=== PATIENT | male | born 1935 | race Caucasian/White ===

== ENCOUNTER 2017-08-06 16:41 | Inpatient (IN) | payer MEDICARE ==
[~2017-08-06] VITALS: Ht 167.6 cm; Wt 62.2 kg
[2017-08-06] MEDS ORDERED: VANCOMYCIN PER PHARMACY MC ONE (17:00)
[2017-08-06] MEDS ORDERED: PIPERACILLIN/TAZO/PMX 3.375GM 50 ML IVPB ONE (17:00)
[2017-08-06] MEDS ORDERED: SODIUM CHLORIDE 0.9% 1,000ML IVBOLUS ONE ×2 (17:00→18:00)
[2017-08-06] MEDS ORDERED: PIPERACILLIN/TAZO/PMX 3.375GM 50 ML ONE ×2 (17:22→17:24)
[2017-08-06 17:27] LABS: MEAN CORPUSCULAR HEMOGLOBIN 33.3 pg (27.5-34.5); MEAN CORPUSCULAR HGB CONC 32.2 g/dL (33.2-36.2); MEAN CORPUSCULAR VOLUME 103.4 fL (81-97); MEAN PLATELET VOLUME 8.7 fL (7.4-10.4); PLATELET COUNT 537 x10^3/uL (130-400); RED BLOOD COUNT 3.62 x10^6/uL (4.38-5.82); RED CELL DISTRIBUTION WIDTH 16.7 % (9.4-14.8)
[2017-08-06 17:28] LABS: MD YES
[2017-08-06] MEDS ORDERED: PLEASE ENTER ALLERGIES MC SCH (17:30)
[2017-08-06] MEDS ORDERED: PLEASE ENTER HEIGHT AND WEIGHT MC SCH (17:30)
[2017-08-06] MEDS ORDERED: VANCOMYCIN 1,400 MG in SODIUM CHLORIDE 0.9% 250 ML IV ONE (17:30)
[2017-08-06 17:35] LABS: INTERNATIONAL NORMALIZED RATIO 1.23 (0.93-1.1); PROTHROMBIN TIME 12.7 Seconds (9.6-11.5)
[2017-08-06 17:38] LABS: ALANINE AMINOTRANSFERASE 17 U/L (12-78); ALBUMIN 1.7 g/dL (3.4-5.0); ANION GAP 30 mmol/L (5-15); CALCIUM 8.1 mg/dL (8.5-10.1); CHLORIDE 108 mmol/L (98-107); CREATININE 1.43 mg/dL (0.7-1.3); PH, VENOUS 6.969 pH (7.320-7.420)
[2017-08-06 17:40] LABS: ALKALINE PHOSPHATASE 136 U/L (45-117); BILIRUBIN,TOTAL 0.7 mg/dL (0.2-1.0); TOTAL PROTEIN 5.8 g/dL (6.4-8.2)
[2017-08-06 17:45] LABS: ACETONE, SERUM Large (80mg/dL) mg/dL (Negative)
[2017-08-06] MEDS ORDERED: INSULIN REGULAR 100 UNITS/ML, 3ML VIAL SQ-INSULIN ONE (18:00)
[2017-08-06 18:18] LABS: BAND#(MANUAL) 4.85 x10^3/uL; BANDS%(MANUAL) 11 % (0-7); EOS#(MANUAL) 0.44 x10^3/uL (0.0-0.4); EOS% (MANUAL) 1 % (1-7); LYMPH#(MANUAL) 1.32 x10^3/uL (1-3.4); LYMPHS% (MANUAL) 3 % (22-44); METAMYELOCYTES# (MANUAL) 2.21 x10^3/uL (0-0); METAMYELOCYTES% (MANUAL) 5 % (0-1); MONOS#(MANUAL) 0.88 x10^3/uL (0.3-2.7); MONOS% (MANUAL) 2 % (2-9); MYELOCYTES# (MANUAL) 3.97 x10^3/uL (0-0); MYELOCYTES% (MANUAL) 9 % (0-0); NRBC % (MANUAL) 2 % (0-1); SEG#(MANUAL) 30.43 x10^3/uL (1.8-6.8); SEGS% (MANUAL) 69 % (42-75)
[2017-08-06 18:19] LABS: ANISOCYTOSIS 1+; HYPOCHROMIA 1+
[2017-08-06 18:20] LABS: <PLATELET ESTIMATE> INCREASED; LARGE PLATELETS 1+
[2017-08-06 18:21] LABS: HYPERSEG PMNs 1+
[2017-08-06] MEDS ORDERED: FENTANYL PF 100 MCG/2ML ONE (18:34)
[2017-08-06] MEDS ORDERED: MIDAZOLAM 1 MG/ML, 2ML ONE (18:34)
[2017-08-06] MEDS ORDERED: SODIUM BICARBONATE 1 MEQ/ML, 50ML VIAL ONE (19:10)
[2017-08-06] MEDS ORDERED: NOREPINEPHRINE 1 MG/ML, 4ML ONE ×2 (19:15→19:17)
[2017-08-06] MEDS ORDERED: REGULAR INSULIN 62.5 UNITS in SODIUM CHLORIDE 0.9% 249.375 ML IV PRN (19:41)
[2017-08-06] MEDS ORDERED: D5%-0.45% NACL 1,000 ML IV PRN (19:41)
[2017-08-06] MEDS ORDERED: ACETAMINOPHEN 325 MG TABLET PO PRN (20:00)
[2017-08-06] MEDS ORDERED: ONDANSETRON ODT 4 MG PO PRN (20:00)
[2017-08-06] MEDS ORDERED: VANCOMYCIN PER PHARMACY MC PRN (20:00)
[2017-08-06] MEDS ORDERED: hydrALAzine 20 MG/ML, 1ML IVPush PRN (20:00)
[2017-08-06] MEDS ORDERED: BISACODYL 10 MG SUPP PR PRN (20:00)
[2017-08-06] MEDS ORDERED: VANCOMYCIN PMX 1GM/200ML 200 ML IV ONE (20:00)
[2017-08-06] MEDS ORDERED: ONDANSETRON 2MG/ML, 2ML IVPush PRN (20:00)
[2017-08-06] MEDS ORDERED: DOCUSATE 100 MG CAPSULE PO PRN (20:00)
[2017-08-06] MEDS ORDERED: POLYETHYLENE GLYCOL 17 GM PACKET PO PRN (20:00)
[2017-08-06] MEDS ORDERED: GLUCAGON 1 MG IM PRN (20:30)
[2017-08-06] MEDS ORDERED: DEXTROSE 4 GM TAB.CHEW PO PRN (20:30)
[2017-08-06] MEDS ORDERED: LIDOCAINE-MPF 1%, 2ML ENDO PRN (21:00)
[2017-08-06] MEDS ORDERED: FAMOTIDINE 20 MG/2 ML IV SCH (21:00)
[2017-08-06] MEDS ORDERED: LACTULOSE 20 GM/30 ML UDC NG PRN (21:00)
[2017-08-06] MEDS ORDERED: VANCOMYCIN 1,400 MG in SODIUM CHLORIDE 0.9% 250 ML IV SCH (21:00)
[2017-08-06] MEDS: SODIUM CHLORIDE FLUSH 10ML SYR IVF SCH (21:00)
[2017-08-06] MEDS ORDERED: PHARMACOKINETIC MONITORING MC PRN (21:00)
[2017-08-06] MEDS ORDERED: PHARMACOKINETIC CONSULTATION MC ONE (21:00)
[2017-08-06 21:08] LABS: ANION GAP 23 mmol/L (5-15); CALCIUM 8.1 mg/dL (8.5-10.1); CHLORIDE 112 mmol/L (98-107)
[2017-08-06 21:10] LABS: CREATININE 0.99 mg/dL (0.7-1.3)
[2017-08-06 21:19] LABS: HEMOGLOBIN A1C 9.6 % (4.2-6.3)
[2017-08-06] MEDS ORDERED: SODIUM BICARB 8.4%, 50ML SYRINGE IVPush ONE (21:30)
[2017-08-06] MEDS: SODIUM CHLORIDE 0.9% 1,000 ML IV SCH (21:50)
[2017-08-06] MEDS ORDERED: MAGNESIUM SULFATE PMX 4GM/100M 100 ML IV ONE (22:00)
[2017-08-06] MEDS: morphine SULFATE 10 MG/ML, 1ML IVPush PRN (22:20)
[2017-08-06] MEDS: PROPOFOL 100 ML IV PRN (22:32)
[2017-08-06] MEDS: PIPERACILLIN/TAZO/PMX 3.375GM 50 ML IV SCH (23:37)
[2017-08-07] MEDS ORDERED: SODIUM BICARB 8.4%, 50ML SYRINGE IVPush STA (00:08)
[2017-08-07 01:35] LABS: MICROSCOPIC INDICATED
[2017-08-07] MEDS: SODIUM CHLORIDE 0.9% 1,000 ML IV SCH (02:16)
[2017-08-07 02:18] LABS: CULTURE INDICATED? NO
[2017-08-07 03:57] VITALS: BP 108/47
[2017-08-07] MEDS: PIPERACILLIN/TAZO/PMX 3.375GM 50 ML IV SCH ×4 (05:46→22:22)
[2017-08-07] MEDS: morphine SULFATE 10 MG/ML, 1ML IVPush PRN (05:46)
[2017-08-07 06:29] LABS: MEAN CORPUSCULAR HEMOGLOBIN 31.6 pg (27.5-34.5); MEAN CORPUSCULAR HGB CONC 32.8 g/dL (33.2-36.2); MEAN CORPUSCULAR VOLUME 96.3 fL (81-97); MEAN PLATELET VOLUME 8.3 fL (7.4-10.4); PLATELET COUNT 373 x10^3/uL (130-400); RED BLOOD COUNT 4.16 x10^6/uL (4.38-5.82); RED CELL DISTRIBUTION WIDTH 17.3 % (9.4-14.8)
[2017-08-07 06:35] LABS: ALANINE AMINOTRANSFERASE 15 U/L (12-78); ALBUMIN 1.5 g/dL (3.4-5.0); ANION GAP 20 mmol/L (5-15); CALCIUM 7.7 mg/dL (8.5-10.1); CHLORIDE 113 mmol/L (98-107); CREATININE 1.31 mg/dL (0.7-1.3)
[2017-08-07 06:38] LABS: ALKALINE PHOSPHATASE 106 U/L (45-117); BILIRUBIN,TOTAL 1.6 mg/dL (0.2-1.0); CHOLESTEROL, TOTAL 69 mg/dL (140-239); HDL CHOL % 33 % (26-37); HDL CHOLESTEROL (DIRECT) 23 mg/dL (40-60); LDL CHOLESTEROL,CALCULATED 21 mg/dL (54-169); LDL/HDL RATIO 0.9 (0.5-3.0); TOTAL PROTEIN 4.9 g/dL (6.4-8.2); TRIGLYCERIDES 126 mg/dL (50-200); VLDL CHOLESTEROL 25 mg/dL (0-25)
[2017-08-07 06:46] LABS: MD YES
[2017-08-07 06:49] LABS: BAND#(MANUAL) 1.35 x10^3/uL; BANDS%(MANUAL) 5 % (0-7); LYMPH#(MANUAL) 1.35 x10^3/uL (1-3.4); LYMPHS% (MANUAL) 5 % (22-44); METAMYELOCYTES# (MANUAL) 0.54 x10^3/uL (0-0); METAMYELOCYTES% (MANUAL) 2 % (0-1); MONOS#(MANUAL) 1.35 x10^3/uL (0.3-2.7); MONOS% (MANUAL) 5 % (2-9); NRBC % (MANUAL) 1 % (0-1); SEG#(MANUAL) 22.41 x10^3/uL (1.8-6.8); SEGS% (MANUAL) 83 % (42-75)
[2017-08-07 06:50] LABS: <PLATELET ESTIMATE> ADEQUATE; ANISOCYTOSIS 1+; LARGE PLATELETS 1+
[2017-08-07] MEDS: DEXTROSE 5% 1,000 ML IV SCH ×2 (08:39→21:56)
[2017-08-07] MEDS: SODIUM CHLORIDE FLUSH 10ML SYR IVF SCH ×2 (08:39→20:26)
[2017-08-07 09:26] LABS: ANION GAP 14 mmol/L (5-15); CALCIUM 7.3 mg/dL (8.5-10.1); CHLORIDE 112 mmol/L (98-107); CREATININE 1.31 mg/dL (0.7-1.3)
[2017-08-07] MEDS: CLINDAMYCIN PMX 900MG/50ML 50 ML IV SCH ×2 (09:38→16:22)
[2017-08-07] MEDS: FENTANYL PF 100 MCG/2ML IVPush PRN ×3 (09:38→13:58)
[2017-08-07 11:35] VITALS: BP 108/49
[2017-08-07] MEDS ORDERED: POTASSIUM PHOSPHATE 44 MEQ in SODIUM CHLORIDE 0.9% 500 ML IV ONE (13:30)
[2017-08-07] MEDS: VANCOMYCIN 1,200 MG in SODIUM CHLORIDE 0.9% 250 ML IV SCH (13:50)
[2017-08-07] MEDS ORDERED: INSULIN GLARGINE 100 UNITS/ML, PEN ONE (14:27)
[2017-08-07] MEDS ORDERED: POTASSIUM CHLORIDE 10% 40 MEQ/30 ML UDC PO ONE (14:30)
[2017-08-07] MEDS: INSULIN GLARGINE 100 UNITS/ML, PEN SQ-INSULIN SCH (14:32)
[2017-08-07] MEDS ORDERED: GLIP10TA13 PO (14:47)
[2017-08-07] MEDS ORDERED: DIPH1TAB PO (14:47)
[2017-08-07] MEDS ORDERED: GABA100C PO (14:47)
[2017-08-07] MEDS ORDERED: MULT-717 PO (14:47)
[2017-08-07] MEDS ORDERED: FURO20TA3 PO (14:48)
[2017-08-07] MEDS ORDERED: PIOG45TA3 PO (14:48)
[2017-08-07] MEDS ORDERED: IBUP-1222 PO (14:48)
[2017-08-07] MEDS ORDERED: POTA20TA89 PO (14:48)
[2017-08-07] MEDS ORDERED: LISI-167 PO (14:48)
[2017-08-07] MEDS ORDERED: CHOL200074 PO (14:48)
[2017-08-07] MEDS ORDERED: SIMV10TA3 PO (14:48)
[2017-08-07] MEDS ORDERED: METF500T4 PO (14:48)
[2017-08-07] MEDS: INSULIN LISPRO 100 UNITS/ML, PEN SQ-INSULIN SCH ×3 (16:21→23:30)
[2017-08-07] MEDS ORDERED: FENTANYL PF 2,500 MCG in SODIUM CHLORIDE 0.9% 200 ML IV PRN (18:30)
[2017-08-07] MEDS ORDERED: PHENYLEPHRINE 10 MG/ML ONE (18:39)
[2017-08-07] MEDS: FAMOTIDINE 20 MG/2 ML IV SCH (20:25)
[2017-08-07] MEDS: OXYcodone IR 5MG TABLET PO PRN (20:25)
[2017-08-07] MEDS: NOREPINEPHRINE 8 MG in SODIUM CHLORIDE 0.9% 242 ML IV PRN (22:22)
[2017-08-07] MEDS: PROPOFOL 100 ML IV PRN (23:19)
[2017-08-08] MEDS: CLINDAMYCIN PMX 900MG/50ML 50 ML IV SCH ×3 (00:47→17:15)
[2017-08-08] MEDS: INSULIN LISPRO 100 UNITS/ML, PEN SQ-INSULIN SCH ×6 (03:40→23:32)
[2017-08-08] MEDS: INSULIN GLARGINE 100 UNITS/ML, PEN SQ-INSULIN SCH ×2 (03:41→15:41)
[2017-08-08 04:00] VITALS: BP 119/52
[2017-08-08 05:22] LABS: CHLORIDE 110 mmol/L (98-107)
[2017-08-08] MEDS: PIPERACILLIN/TAZO/PMX 3.375GM 50 ML IV SCH ×2 (05:22→12:07)
[2017-08-08 05:25] LABS: MEAN CORPUSCULAR HEMOGLOBIN 32.1 pg (27.5-34.5); MEAN CORPUSCULAR HGB CONC 33.8 g/dL (33.2-36.2); MEAN PLATELET VOLUME 8.6 fL (7.4-10.4); PLATELET COUNT 241 x10^3/uL (130-400); RED BLOOD COUNT 3.93 x10^6/uL (4.38-5.82); RED CELL DISTRIBUTION WIDTH 17.9 % (9.4-14.8)
[2017-08-08 05:31] LABS: ALANINE AMINOTRANSFERASE 18 U/L (12-78); ALBUMIN 1.3 g/dL (3.4-5.0); ALKALINE PHOSPHATASE 125 U/L (45-117); BILIRUBIN,TOTAL 1.5 mg/dL (0.2-1.0); CALCIUM 7.3 mg/dL (8.5-10.1); CREATININE 1.14 mg/dL (0.7-1.3); TOTAL PROTEIN 4.5 g/dL (6.4-8.2)
[2017-08-08 05:44] LABS: MD YES
[2017-08-08 05:45] LABS: BAND#(MANUAL) 1.71 x10^3/uL; BANDS%(MANUAL) 8 % (0-7); LYMPH#(MANUAL) 0.64 x10^3/uL (1-3.4); LYMPHS% (MANUAL) 3 % (22-44); MONOS#(MANUAL) 0.21 x10^3/uL (0.3-2.7); MONOS% (MANUAL) 1 % (2-9); SEG#(MANUAL) 18.83 x10^3/uL (1.8-6.8); SEGS% (MANUAL) 88 % (42-75)
[2017-08-08 05:46] LABS: ANISOCYTOSIS 1+
[2017-08-08 05:47] LABS: <PLATELET ESTIMATE> ADEQUATE; LARGE PLATELETS 1+
[2017-08-08 06:08] LABS: ANION GAP 10 mmol/L (5-15)
[2017-08-08] MEDS ORDERED: POTASSIUM CHLORIDE 10% 40 MEQ/30 ML UDC PO ONE (08:30)
[2017-08-08] MEDS: SODIUM CHLORIDE FLUSH 10ML SYR IVF SCH ×2 (09:06→21:51)
[2017-08-08] MEDS: PROPOFOL 100 ML IV PRN (09:08)
[2017-08-08] MEDS ORDERED: VASOPRESSIN 100 UNIT in SODIUM CHLORIDE 0.9% 495 ML IV PRN (11:00)
[2017-08-08] MEDS: PIPERACILLIN/TAZO/PMX 4.5GM 100 ML IV SCH ×2 (18:22→23:33)
[2017-08-08] MEDS: FAMOTIDINE 20 MG/2 ML IV SCH (21:51)
[2017-08-09] MEDS: CLINDAMYCIN PMX 900MG/50ML 50 ML IV SCH ×3 (00:48→17:38)
[2017-08-09] MEDS: VANCOMYCIN 1,200 MG in SODIUM CHLORIDE 0.9% 250 ML IV SCH (00:48)
[2017-08-09] MEDS: INSULIN GLARGINE 100 UNITS/ML, PEN SQ-INSULIN SCH ×2 (02:42→17:41)
[2017-08-09] MEDS: INSULIN LISPRO 100 UNITS/ML, PEN SQ-INSULIN SCH ×4 (02:42→17:40)
[2017-08-09] MEDS: OXYcodone IR 5MG TABLET PO PRN (02:43)
[2017-08-09 04:00] VITALS: BP 110/57
[2017-08-09 04:32] LABS: MEAN CORPUSCULAR HEMOGLOBIN 31.8 pg (27.5-34.5); MEAN CORPUSCULAR HGB CONC 33.2 g/dL (33.2-36.2); MEAN CORPUSCULAR VOLUME 95.7 fL (81-97); MEAN PLATELET VOLUME 8.7 fL (7.4-10.4); PLATELET COUNT 180 x10^3/uL (130-400); RED BLOOD COUNT 3.55 x10^6/uL (4.38-5.82); RED CELL DISTRIBUTION WIDTH 17.5 % (9.4-14.8)
[2017-08-09 04:40] LABS: ALANINE AMINOTRANSFERASE 23 U/L (12-78); ALBUMIN 1.2 g/dL (3.4-5.0); ANION GAP 8 mmol/L (5-15); CHLORIDE 109 mmol/L (98-107); CREATININE 0.94 mg/dL (0.7-1.3); TRIGLYCERIDES 110 mg/dL (50-200)
[2017-08-09 04:42] LABS: ALKALINE PHOSPHATASE 155 U/L (45-117); BILIRUBIN,TOTAL 1.4 mg/dL (0.2-1.0); TOTAL PROTEIN 4.3 g/dL (6.4-8.2)
[2017-08-09 05:14] LABS: MD YES
[2017-08-09 05:15] LABS: BAND#(MANUAL) 0.82 x10^3/uL; BANDS%(MANUAL) 4 % (0-7); LYMPH#(MANUAL) 1.65 x10^3/uL (1-3.4); LYMPHS% (MANUAL) 8 % (22-44); MONOS#(MANUAL) 0.21 x10^3/uL (0.3-2.7); MONOS% (MANUAL) 1 % (2-9); SEG#(MANUAL) 17.92 x10^3/uL (1.8-6.8); SEGS% (MANUAL) 87 % (42-75)
[2017-08-09 05:16] LABS: <PLATELET ESTIMATE> ADEQUATE; ANISOCYTOSIS 1+; GIANT PLATELETS 1+
[2017-08-09] MEDS: PIPERACILLIN/TAZO/PMX 4.5GM 100 ML IV SCH ×3 (06:17→17:38)
[2017-08-09] MEDS ORDERED: POTASSIUM CHLORIDE 10% 40 MEQ/30 ML UDC PO ONE (08:30)
[2017-08-09] MEDS ORDERED: MAGNESIUM SULFATE PMX 4GM/100M 100 ML IV ONE (09:00)
[2017-08-09] MEDS: SODIUM CHLORIDE FLUSH 10ML SYR IVF SCH ×2 (10:53→20:47)
[2017-08-09] MEDS: ENOXAPARIN 40 MG/0.4 ML SQ SCH (10:54)
[2017-08-09] MEDS: NOREPINEPHRINE 8 MG in SODIUM CHLORIDE 0.9% 242 ML IV PRN (19:15)
[2017-08-09] MEDS: FAMOTIDINE 20 MG/2 ML IV SCH (20:47)
[2017-08-10] MEDS: PIPERACILLIN/TAZO/PMX 4.5GM 100 ML IV SCH ×4 (00:30→18:24)
[2017-08-10] MEDS: INSULIN LISPRO 100 UNITS/ML, PEN SQ-INSULIN SCH ×5 (00:30→23:00)
[2017-08-10] MEDS: CLINDAMYCIN PMX 900MG/50ML 50 ML IV SCH ×3 (02:22→17:08)
[2017-08-10] MEDS: INSULIN GLARGINE 100 UNITS/ML, PEN SQ-INSULIN SCH ×2 (03:52→13:53)
[2017-08-10 04:00] VITALS: BP 96/48
[2017-08-10 04:16] LABS: ALANINE AMINOTRANSFERASE 21 U/L (12-78); ALBUMIN 1.1 g/dL (3.4-5.0); ANION GAP 8 mmol/L (5-15); CALCIUM 7.5 mg/dL (8.5-10.1); CHLORIDE 108 mmol/L (98-107); CREATININE 0.92 mg/dL (0.7-1.3)
[2017-08-10 04:18] LABS: ALKALINE PHOSPHATASE 180 U/L (45-117); TOTAL PROTEIN 4.7 g/dL (6.4-8.2)
[2017-08-10 05:28] LABS: MEAN CORPUSCULAR HEMOGLOBIN 32.3 pg (27.5-34.5); MEAN CORPUSCULAR HGB CONC 33.2 g/dL (33.2-36.2); MEAN CORPUSCULAR VOLUME 97.3 fL (81-97); MEAN PLATELET VOLUME 9.6 fL (7.4-10.4); PLATELET COUNT 174 x10^3/uL (130-400); RED CELL DISTRIBUTION WIDTH 17.7 % (9.4-14.8)
[2017-08-10 06:08] LABS: BASOPHILS # (AUTO) 0.07 x10^3/uL (0-0.1); BASOPHILS % (AUTO) 0 % (0-1); EOSINOPHILS # (AUTO) 0.01 x10^3/uL (0-0.4); EOSINOPHILS % (AUTO) 0 % (1-7); LYMPHOCYTES # (AUTO) 0.76 x10^3/uL (1-3.4); LYMPHOCYTES % (AUTO) 4 % (22-44); MD SCAN; MONOCYTES # (AUTO) 0.25 x10^3/uL (0.2-0.8); MONOCYTES % (AUTO) 1 % (2-9); NEUTROPHILS # (AUTO) 17.74 x10^3/uL (1.8-6.8); NEUTROPHILS % (AUTO) 94 % (42-75)
[2017-08-10] MEDS ORDERED: POTASSIUM CHLORIDE 10% 40 MEQ/30 ML UDC PO ONE (08:30)
[2017-08-10] MEDS ORDERED: INSULIN GLARGINE 100 UNITS/ML, PEN SQ-INSULIN ONE (08:30)
[2017-08-10] MEDS: ENOXAPARIN 40 MG/0.4 ML SQ SCH (09:26)
[2017-08-10] MEDS: SODIUM CHLORIDE FLUSH 10ML SYR IVF SCH ×2 (09:27→21:38)
[2017-08-10] MEDS ORDERED: DAPTOMYCIN IVPB SCH (10:00)
[2017-08-10] MEDS ORDERED: SODIUM CHLORIDE 0.9% IVPB SCH (10:00)
[2017-08-10] MEDS ORDERED: FENTANYL PF 100 MCG/2ML ONE (11:38)
[2017-08-10] MEDS ORDERED: FENTANYL PF 100 MCG/2ML IVPush ONE (12:00)
[2017-08-10] MEDS: DAPTOMYCIN 400 MG in SODIUM CHLORIDE 0.9% 100 ML IVPB SCH (12:04)
[2017-08-10] MEDS ORDERED: FENTANYL PF 100 MCG/2ML IVPush PRN (12:30)
[2017-08-10] MEDS: LACTULOSE 20 GM/30 ML UDC PO SCH ×3 (13:51→21:38)
[2017-08-10] MEDS: FAMOTIDINE 20 MG/2 ML IV SCH (21:38)
[2017-08-11] MEDS: PIPERACILLIN/TAZO/PMX 4.5GM 100 ML IV SCH ×3 (00:06→13:50)
[2017-08-11] MEDS: CLINDAMYCIN PMX 900MG/50ML 50 ML IV SCH ×2 (02:33→08:49)
[2017-08-11 04:00] VITALS: BP 114/55
[2017-08-11 05:37] LABS: MEAN CORPUSCULAR HEMOGLOBIN 32.1 pg (27.5-34.5); MEAN CORPUSCULAR HGB CONC 33.2 g/dL (33.2-36.2); MEAN CORPUSCULAR VOLUME 96.7 fL (81-97); MEAN PLATELET VOLUME 9.6 fL (7.4-10.4); PLATELET COUNT 201 x10^3/uL (130-400); RED BLOOD COUNT 3.62 x10^6/uL (4.38-5.82)
[2017-08-11] MEDS: INSULIN LISPRO 100 UNITS/ML, PEN SQ-INSULIN SCH ×2 (05:38→11:00)
[2017-08-11] MEDS: INSULIN GLARGINE 100 UNITS/ML, PEN SQ-INSULIN SCH (05:39)
[2017-08-11] MEDS: LACTULOSE 20 GM/30 ML UDC PO SCH ×2 (05:41→13:06)
[2017-08-11 06:22] LABS: BASOPHILS # (AUTO) 0.01 x10^3/uL (0-0.1); BASOPHILS % (AUTO) 0 % (0-1); EOSINOPHILS # (AUTO) 0.03 x10^3/uL (0-0.4); EOSINOPHILS % (AUTO) 0 % (1-7); LYMPHOCYTES # (AUTO) 0.97 x10^3/uL (1-3.4); LYMPHOCYTES % (AUTO) 6 % (22-44); MD SCAN; MONOCYTES # (AUTO) 0.58 x10^3/uL (0.2-0.8); MONOCYTES % (AUTO) 4 % (2-9); NEUTROPHILS # (AUTO) 14.25 x10^3/uL (1.8-6.8); NEUTROPHILS % (AUTO) 90 % (42-75)
[2017-08-11 07:46] LABS: ALBUMIN 1.2 g/dL (3.4-5.0); ANION GAP 11 mmol/L (5-15); CALCIUM 7.5 mg/dL (8.5-10.1); CHLORIDE 105 mmol/L (98-107)
[2017-08-11 07:49] LABS: ALANINE AMINOTRANSFERASE 37 U/L (12-78); ALKALINE PHOSPHATASE 218 U/L (45-117); BILIRUBIN,TOTAL 1.1 mg/dL (0.2-1.0); CREATININE 0.81 mg/dL (0.7-1.3); TOTAL PROTEIN 5.1 g/dL (6.4-8.2)
[2017-08-11] MEDS ORDERED: LACTATED RINGERS 500 ML IVBOLUS ONE (08:30)
[2017-08-11] MEDS ORDERED: DOCUSATE 50 MG/5 ML, 10ML UDC ONE (08:43)
[2017-08-11] MEDS: ENOXAPARIN 40 MG/0.4 ML SQ SCH (08:49)
[2017-08-11] MEDS: SODIUM CHLORIDE FLUSH 10ML SYR IVF SCH (08:59)
[2017-08-11] MEDS ORDERED: DOCUSATE 100 MG CAPSULE PO SCH ×2 (09:00→21:00)
[2017-08-11] MEDS: DAPTOMYCIN 400 MG in SODIUM CHLORIDE 0.9% 100 ML IVPB SCH (12:21)
[2017-08-11] MEDS: DEXTROSE 50%, 50ML SYRINGE IVPush PRN ×2 (12:47→13:45)
[2017-08-11] MEDS ORDERED: INSULIN GLARGINE 100 UNITS/ML, PEN SQ-INSULIN SCH (14:30)
[2017-08-11] MEDS ORDERED: ATROPINE OPHTH SOLN 1%, 5ML PO PRN (16:30)
[2017-08-11] MEDS ORDERED: morphine SULFATE 10 MG/ML, 1ML IVPush PRN (16:30)
[2017-08-11] MEDS ORDERED: LORazepam 2 MG/ML, 1ML IVPush PRN ×2 (16:30)
[2017-08-11] MEDS ORDERED: ATROPINE OPHTH SOLN 1%, 2ML PO PRN (21:30)
== END 2017-08-11 22:37 | disposition expired | DRG 853 ==
LOC: ED 16:50 → EDIP 17:58 → CCU 20:26 → 3NW 08-11 18:12
PROVIDERS: ADMIT Internal Medicine; ATTEND Internal Medicine
PROC: 0JBL0ZZ Excision of Right Upper Leg Subcutaneous Tissue and Fascia, Open Approach (ICD-10-PCS; 2017-08-06)
PROC: 30233N1 Transfusion of Nonautologous Red Blood Cells into Peripheral Vein, Percutaneous Approach (ICD-10-PCS; 2017-08-06)
PROC: 0Y6G0ZZ Detachment at Left Knee Region, Open Approach (ICD-10-PCS; principal; 2017-08-06 18:30)
PROC: 0T9B70Z Drainage of Bladder with Drainage Device, Via Natural or Artificial Opening (ICD-10-PCS; 2017-08-07)
PROC: 5A1955Z Respiratory Ventilation, Greater than 96 Consecutive Hours (ICD-10-PCS; 2017-08-07)
PROC: 0BH17EZ Insertion of Endotracheal Airway into Trachea, Via Natural or Artificial Opening (ICD-10-PCS; 2017-08-07)
DX: A41.9 Sepsis, unspecified organism (principal); R65.21 Severe sepsis with septic shock; J96.01 Acute respiratory failure with hypoxia; N17.0 Acute kidney failure with tubular necrosis; E43 Unspecified severe protein-calorie malnutrition; M72.6 Necrotizing fasciitis; E11.10 Type 2 diabetes mellitus with ketoacidosis without coma; G93.41 Metabolic encephalopathy; E87.2 Acidosis; E87.0 Hyperosmolality and hypernatremia; I50.20 Unspecified systolic (congestive) heart failure; J98.11 Atelectasis; L03.116 Cellulitis of left lower limb; Z99.11 Dependence on respirator [ventilator] status; E11.40 Type 2 diabetes mellitus with diabetic neuropathy, unspecified; D53.9 Nutritional anemia, unspecified; Z68.22 Body mass index [BMI] 22.0-22.9, adult; E78.5 Hyperlipidemia, unspecified; F17.290 Nicotine dependence, other tobacco product, uncomplicated; I07.1 Rheumatic tricuspid insufficiency; I11.0 Hypertensive heart disease with heart failure; I35.8 Other nonrheumatic aortic valve disorders; I45.10 Unspecified right bundle-branch block; L89.322 Pressure ulcer of left buttock, stage 2; Z66 Do not resuscitate; Z51.5 Encounter for palliative care; B95.1 Streptococcus, group B, as the cause of diseases classified elsewhere; L89.312 Pressure ulcer of right buttock, stage 2; M60.9 Myositis, unspecified; Z85.038 Personal history of other malignant neoplasm of large intestine; Z90.49 Acquired absence of other specified parts of digestive tract
CPT/HCPCS: 36415; 36430; 36600; 71045; 80048; 80053; 80061; 80202; 81001; 82010; 82330; 82533; 82803; 82947; 82962; 83036; 83605; 83735; 83874; 84100; 84132; 84295; 84439; 84443; 84478; 85014; 85025; 85610; 85730; 86850; 86900; 86923; 87040; 87070; 87075; 87077; 87081; 87147; 87176; 87181; 87186; 87205; 88307; 93005; 93306; 94002; 94003; 96374; 99291; J0878; J1650; J1815; J2250; J2543; J2704; J3010; J3370; J7060; J7070; J7120; J2060; J2270; J2370; J3475; J7030; J7040; J7050; P9016; S0028